=== PATIENT | male | born 1940 | race Caucasian/White ===

== ENCOUNTER 2023-12-20 11:35 | Emergency (ER) | payer MEDICARE, BC, SELFPAY ==
[2023-12-20 11:55] VITALS: BP 161/86; PULSE 77; RESP 18; TEMP 36.6; O2SAT 96; BMI 25.0
--- NOTE | 2023-12-20 12:10 | ED.GENADULT ---
HPI - General Adult General Chief complaint: Hip Injury/Pain Stated complaint: R hip pain Time Seen by Provider: 12/20/23 11:38 Source: patient and family Limitations: no limitations History of Present Illness HPI narrative: 83-year-old male presenting today with hip pain. Patient states he has had right-sided hip and leg pain going on for about 3 weeks. Pain radiates down the leg. Sometimes it is at the lateral hip sometimes it is on the side of the size sometimes it goes all the way down to the calf. He denies any swelling of that leg. He denies any fevers or chills. No other systemic symptoms. Patient states that he has been evaluated for this pain with an ultrasound to rule out a blood clot and an x-ray of the hip joint which showed arthritis per patient report. He states that the pain is getting worse. He denies any trauma. He denies pain in his back. He denies any loss of bowel function. No saddle anesthesia. Patient does have an indwelling catheter secondary to history of colon cancer. Denies any changes in the color of his urine. He denies any abdominal pain. Patient lives at home independently. He has a history of hypertension hyperlipidemia. Colon cancer status post resection many years ago. He has an indwelling catheter, no colostomy bag. He denies any changes in his bowel movements. He says that the pain makes it difficult to walk. His daughter is quite concerned because his house looks like a disaster and he has been decompensating due to his pain for the last couple of weeks. Current medications include: Spironolactone, Prilosec, metoprolol, amlodipine, rosuvastatin, multiple vitamins. Related Data Previous Rx's Medication Instructions Recorded methylprednisolone 4 mg tablets in See Rx Instructions PO .COMPLEX 12/20/23 a dose pack (Medrol ([facility]an)) #21 ea Allergies Allergy/AdvReac Type Severity Reaction Status Date / Time No Known Drug Allergies Allergy Verified 12/20/23 12:00 Review of Systems Status of ROS: Reports: 10 or more systems reviewed and unremarkable except as noted in History and below Exam Narrative: Exam Narrative: Well-nourished well-developed patient in no acute distress. Alert and oriented. Answers questions appropriately. Mood and affect are appropriate. Thoughts are goal oriented and rational. No tangential or magical thinking noted. Patient speaks in full sentences without needing to catch his breath. He does not appear ill or toxic. HEENT: Normocephalic atraumatic. Pupils are equally round reactive to light. Extraocular muscles are intact. Conjunctivae are moist without any icterus noted. Moist mucous membranes. Neck is soft. Cardiovascular: Heart is regular rate and rhythm. Lungs: Clear to auscultation bilaterally. Abdomen: Soft and nontender nondistended with normal bowel sounds. Extremities: Bilateral lower extremities are without edema. Normal DP and PT pulses. Right lower extremity has normal appearance. He has full range of motion at the hip without significant pain. Full range of motion at the knee without pain, full range of motion at the ankle without pain. He has no tenderness over the greater trochanter or with palpation of the thigh or lower leg. There is no swelling or erythema noted. He has some mild excoriations of the lower extremities secondary to his urine leg bag. Back appears normal. He has no point tenderness of the lumbar or thoracic spine. Skin: Well perfused. Const: Vital Signs, click to edit/add: Vital Signs - 24 hr 12/20/23 11:55 Temperature 97.9 F Pulse Rate [Right Pulse Oximeter] 77 Respiratory Rate 18 Blood Pressure [Ri ght Upper Arm] 161/86 H Pulse Oximetry 96 Oxygen Delivery Me thod Room Air Course Course ED Course: We discussed that the likely source of his pain is from the lower back causing radiculopathy as there is no point tenderness of the leg and the pain shoots down the leg at different times during the day. At this time I do not think that further imaging of the leg would be beneficial, I do think that a trial of steroids however would be. I also gave him 1 dose of Toradol today while he was here. Vital Signs Vital signs: Initial Vital Signs Temperature 97.9 F 12/20/23 11:55 Temperature Source Temporal Artery Scan 12/20/23 11:55 Pulse Rate 77 12/20/23 11:55 Respiratory Rate 18 12/20/23 11:55 Blood Pressure 161/86 H 12/20/23 11:55 Blood Pressure Mean 111 H 12/20/23 11:55 Blood Pressure Position Sitting 12/20/23 11:55 Pulse Oximetry 96 12/20/23 11:55 Oxygen Delivery Method Room Air 12/20/23 11:55 Vital Signs Temperature 97.9 F 12/20/23 11:55 Pulse Rate 77 12/20/23 11:55 Respiratory Rate 18 12/20/23 11:55 Blood Pressure 161/86 H 12/20/23 11:55 Pulse Oximetry 96 12/20/23 11:55 Oxygen Delivery Method Room Air 12/20/23 11:55 Temperature 97.9 F 12/20/23 11:55 Pulse Rate 77 12/20/23 11:55 Respiratory Rate 18 12/20/23 11:55 Blood Pressure 161/86 H 12/20/23 11:55 Pulse Oximetry 96 12/20/23 11:55 Oxygen Delivery Method Room Air 12/20/23 11:55 Medical Decision Making MDM Narrative Medical decision making narrative: 83-year-old male with what sounds like radicular leg pain. We will put the patient on the Medrol Dosepak and I would like for him to follow up with his primary care provider in 1 week. Given the fact that there are no red flag symptoms at this time, I do not think that further imaging of the back or leg would be beneficial. Without any trauma, a stress fracture of the hip would be less likely although not impossible. Would also be less likely given the fact that his pain is not isolated to the hip. If pain continues despite treatment in 1 week, then would consider further imaging. Discharge Plan Discharge Clinical Impression: Radicular leg pain Patient Disposition: Home, Self-Care Condition: Stable Additional Instructions: Take all steroid as prescribed. Follow-up with your primary care provider in 1 week. Return to the ER if pain worsens, you lose control of your bowels, you develop a fever, or the groin area becomes numb. Prescriptions: New methylprednisolone [Medrol (Logan)] 4 mg tablets,dose pack See Rx Instructions .ROUTE .COMPLEX Qty: 21 0RF Rx Instructions: orally per package directions Stand Alone Forms: [facility] Info Instructions
[2023-12-20] MEDS: KETOROLAC 60 MG/2 ML inj IM (12:24)
== END 2023-12-20 12:41 | disposition home or self-care (01) ==
PROVIDERS: Emergency Provider Family Medicine; PCP Family Medicine
DX: M54.16 Radiculopathy, lumbar region (principal)
CPT/HCPCS: 96372; 99283; J1885